=== PATIENT | female | born 1990 | race Caucasian/White ===

== ENCOUNTER 2017-09-30 17:36 | Emergency (ER) | payer OTHER, MEDICAID, SELFPAY ==
[2017-09-30 17:37] VITALS: BP 114/74; PULSE 88; RESP 16; TEMP 36.7; O2SAT 98; BMI 23.6
[2017-09-30] MEDS: 0.9% Normal Saline 1,000 ML 1000 ML IV ×2 (19:06→19:52)
[2017-09-30] MEDS: Ondansetron 4 MG/2 ML Vial IV (19:06)
--- NOTE | 2017-09-30 19:14 | ED.DCSUM_ITS ---
- ER Visit Summary Date of Service: 09/30/17 Chief Complaint: Nausea, vomiting History of Present Illness: The patient is a 27 F is a at approximately 7 weeks gestation who presents with nausea and vomiting. Patient has had hyperemesis with all of her pregnancies. She states that she began to vomit over the past 24 hours and is thrown up more than 10 times today. She denies any blood in the emesis. She has been taking Zofran with little improvement. She has had Zofran pump with her prior pregnancies. She denies any fevers or chills. She has had some abdominal cramping in the upper abdomen but denies any lower pain. She has had no vaginal bleeding or discharge. Physical Examination: Vital signs reviewed General: Well-nourished, well-developed Head: Normocephalic, atraumatic Eyes: Pupils equal and reactive, extraocular muscles intact Neck, supple, no lymphadenopathy Heart: Regular rate and rhythm Respiratory: No distress, clear bilaterally Abdomen: Soft, nontender, nondistended, no peritoneal signs Back: Nontender Extremities: Nontender, no edema, no cords Skin: Normal color no rash Neuro: Alert and oriented, no focal or lateralizing deficits Test Results: [] Emergency Department Course and Treatment: The patient has a history of hyperemesis. Her abdomen is soft and nontender. IV was established. The patient was given IV fluids and Zofran. She had persistent nausea but no further vomiting. She was then given Phenergan and Benadryl. Labs were unremarkable. Her nausea is controlled. Her abdomen is still soft. At this time, I do feel that she is safe for outpatient therapy. Patient will be discharged home. Treatment Plan: [] Disposition: Discharge Impression: Hyperemesis This note was generated with [employer] dictation software. It may contain incorrect words, spelling, and punctuation that were not noted in review of the chart prior to signing ED Disposition - Plan for ED Patient: Chief Complaint: Nausea/Vomiting Instructions: ED Preg Morning Sickness Prescriptions: proMETHazine tablet [Phenergan] 25 mg PO Q6H PRN PRN #10 tab PRN Reason: Nausea
[2017-09-30 19:15] LABS: Absolute Lymphocyte Count 1.51 X10^3/ul (0.83-4.51); Absolute Neutrophil Count 5.7 X10^3/uL (2.0-7.7); Basophil# 0.01 X10^3/uL; Basophil% 0.1 % (0-1); Eosinophils% 1.3 % (0-5); Hematocrit 38.1 % (37-47); Hemoglobin 13.1 g/dl (12.0-15.0); Lymphocyte # 1.51 X10^3/ul (4.0); Lymphocyte % 19.4 % (19-41); Mean Corp Hgb Conc 34.4 g/gl (32-36); Mean Corpuscular Hgb 29.6 pg (27.0-32.0); Mean Platelet Vol. 10.6 fl (6.2-12.0); Monocyte# 0.42 X10^3/uL; Monocyte% 5.4 % (0-10); Neutrophil # 5.74 X10^3/uL (2.7-7.7); Neutrophil % 73.8 % (47-70); POSITIVE COUNT NO; POSITIVE DIFFERENTIAL NO; POSITIVE MORPHOLOGY NO; Platelet Count 234 K/mm3 (150-450); RBC Distribution Width CV 12.5 % (11.6-14.6); RBC Distribution Width SD 39.8 fl (35.1-43.9); Red Blood Count 4.43 M/mm3 (4.2-5.4); White Blood Count 7.8 K/mm3 (4.4-11.0)
[2017-09-30 19:45] LABS: AST(SGOT) 12 U/L (15-37); Alanine Aminotransfer ALT/SGPT 20 U/L (13-56); Albumin, Serum 3.9 g/dL (3.2-5.0); Alkaline Phosphatase 57 U/L (45-117); Anion Gap 4 (5-15); BUN 11 mg/dL (7-18); BUN/Creat Ratio 16.5 RATIO (10-20); Calcium,Total 8.8 mg/dL (8.5-10.1); Chloride 103 mmol/L (98-107); Creatinine, Serum 0.67 mg/dL (0.55-1.02); EST Glomerular Filtration Rate 111 mL/min (>60); Est Glom Filt Rate - Afr Amer 134 mL/min (>60); Estimated Creatinine Clearance 120.48 ml/min; Globulin 3.8 g/dL (2.2-4.2); Glucose 76 mg/dL (74-106); Potassium 3.5 mmol/L (3.5-5.1); Protein, Total 7.7 g/dL (6.4-8.2); Sodium Level 136 mmol/L (136-145)
[2017-09-30] MEDS: DiphenhydrAMINE 50 MG/ML Syringe 25 MG IV (19:50)
[2017-09-30] MEDS: proMETHazine 25 MG/ML Syringe 12.5 MG IV (19:52)
[2017-09-30 19:58] VITALS: BP 108/49; PULSE 89; RESP 15; O2SAT 99
[2017-09-30 20:56] VITALS: BP 94/39; PULSE 74; RESP 15; O2SAT 99
== END 2017-09-30 20:57 | disposition home or self-care (01) ==
PROVIDERS: Emergency Provider Emergency Medicine; Family Provider Family Medicine
DX: O21.0 Mild hyperemesis gravidarum (principal); Z3A.01 Less than 8 weeks gestation of pregnancy
CPT/HCPCS: 80053; 84702; 85025; 99283; J7030; A4216; J2405

== ENCOUNTER 2017-10-03 19:59 | Emergency (ER) | payer OTHER, MEDICAID, SELFPAY ==
[2017-10-03 20:01] VITALS: BP 110/73; PULSE 104; RESP 16; TEMP 37.2; O2SAT 98; BMI 23.0
[2017-10-03] MEDS: 0.9% Normal Saline 1,000 ML 1000 ML IV (20:27)
[2017-10-03] MEDS: proMETHazine 25 MG/ML Syringe 12.5 MG IV (20:27)
[2017-10-03 20:32] LABS: Absolute Lymphocyte Count 1.05 X10^3/ul (0.83-4.51); Absolute Neutrophil Count 8.8 X10^3/uL (2.0-7.7); Basophil# 0.01 X10^3/uL; Basophil% 0.1 % (0-1); Eosinophil# 0.05 X10^3/uL; Eosinophils% 0.5 % (0-5); Hematocrit 40.8 % (37-47); Hemoglobin 14.3 g/dl (12.0-15.0); Lymphocyte # 1.05 X10^3/ul (4.0); Lymphocyte % 10.2 % (19-41); Mean Corpuscular Hgb 29.8 pg (27.0-32.0); Mean Platelet Vol. 11.1 fl (6.2-12.0); Monocyte# 0.41 X10^3/uL; Neutrophil # 8.75 X10^3/uL (2.7-7.7); Neutrophil % 85.1 % (47-70); POSITIVE COUNT NO; POSITIVE DIFFERENTIAL NO; POSITIVE MORPHOLOGY NO; Platelet Count 241 K/mm3 (150-450); RBC Distribution Width CV 12.3 % (11.6-14.6); RBC Distribution Width SD 37.9 fl (35.1-43.9); White Blood Count 10.3 K/mm3 (4.4-11.0)
[2017-10-03 20:42] LABS: Anion Gap 11 (5-15); BUN 14 mg/dL (7-18); BUN/Creat Ratio 21.9 RATIO (10-20); Chloride 105 mmol/L (98-107); Creatinine, Serum 0.64 mg/dL (0.55-1.02); EST Glomerular Filtration Rate 116 mL/min (>60); Est Glom Filt Rate - Afr Amer 141 mL/min (>60); Estimated Creatinine Clearance 126.13 ml/min; Glucose 97 mg/dL (74-106); Potassium 3.6 mmol/L (3.5-5.1); Sodium Level 138 mmol/L (136-145)
[2017-10-03] MEDS: Ondansetron 4 MG/2 ML Vial IV (21:09)
[2017-10-03] MEDS: 0.9% Normal Saline 1,000 ML 150 ML IV (21:09)
--- NOTE | 2017-10-03 21:50 | ED.DCSUM_ITS ---
- ER Visit Summary Date of Service: 10/03/17 Chief Complaint: Nausea and vomiting History of Present Illness: The patient is a 27 F who is currently 6 or 7 weeks . This is her third . She has had problems with hyperemesis with her prior pregnancies that required a Zofran pump. She was seen in the ER on September 30 with the same. She has Zofran and Phenergan both at home. Patient denies pelvic cramping or spotting. Physical Examination: Vital signs significant for heart rate of 104, otherwise normal. Patient is retching over the side of the bed when I enter the room. Heart is slightly tachycardic and regular. Lung sounds are clear. Abdomen is soft with mild lower abdominal tenderness. There is no guarding or rebound. Test Results: CBC and chemistry studies are unremarkable. Emergency Department Course and Treatment: Patient was given IV fluids and IV Phenergan. On repeat evaluation she was no longer retching but states that she is still vomiting. She is given a dose of Zofran. On repeat eval patient states that she still feels nauseated but has not had any further vomiting. I spoke with Dr. Palma, on-call for the patient's CLINICAL CASE MANAGER, in [place]. Patient is to call the office at 8:00 tomorrow morning to be seen as soon as possible for follow-up. Treatment Plan: [] Disposition: Discharge Impression: Hyperemesis This note was generated with [employer] dictation software. It may contain incorrect words, spelling, and punctuation that were not noted in review of the chart prior to signing ED Disposition - Plan for ED Patient: Chief Complaint: Nausea/Vomiting Referrals: Care Physician,No Primary [Primary Care Provider] -
--- NOTE | 2017-10-03 21:50 | ED.DEP ---
ED Disposition - Plan for ED Patient: Disposition: Home or Assisted Living Chief Complaint: Nausea/Vomiting Instructions: Severe Morning Sickness (Hyperemesis Gravidarum) Referrals: Jw Ron MD [STAFF PHYSICIAN] - As soon as possible
[2017-10-03 22:04] VITALS: BP 126/78; PULSE 67; RESP 16; O2SAT 100
[2017-10-03 22:05] VITALS: BP 126/78; PULSE 64; RESP 16; O2SAT 100
[2017-10-03] MEDS: proMETHazine 12.5 MG Suppos. RECTAL (22:06)
== END 2017-10-03 22:15 | disposition home or self-care (01) ==
PROVIDERS: Emergency Provider Emergency Medicine; Family Provider Family Medicine
DX: O21.0 Mild hyperemesis gravidarum (principal); Z3A.01 Less than 8 weeks gestation of pregnancy
CPT/HCPCS: 80048; 85025; 96361; 96374; 96375; 99283; J7030; A4216; J2405

== ENCOUNTER 2017-10-05 16:51 | Emergency (ER) | payer OTHER, MEDICAID, SELFPAY ==
[2017-10-05 16:53] VITALS: BP 108/68; PULSE 94; RESP 16; TEMP 36.7; O2SAT 98; BMI 22.8
[2017-10-05] MEDS: Metoclopramide 10 MG/2 ML Vial IV (18:33)
[2017-10-05] MEDS: DiphenhydrAMINE 50 MG/ML Syringe 25 MG IV (18:33)
[2017-10-05] MEDS: 0.9% Normal Saline 1,000 ML 1000 ML IV (18:34)
[2017-10-05] MEDS: 0.9% Normal Saline 1,000 ML 150 ML IV (18:34)
[2017-10-05 18:42] LABS: Absolute Lymphocyte Count 1.18 X10^3/ul (0.83-4.51); Absolute Neutrophil Count 8.6 X10^3/uL (2.0-7.7); Basophil# 0.01 X10^3/uL; Basophil% 0.1 % (0-1); Eosinophil# 0.04 X10^3/uL; Eosinophils% 0.4 % (0-5); Hematocrit 43.1 % (37-47); Hemoglobin 15.1 g/dl (12.0-15.0); Lymphocyte # 1.18 X10^3/ul (4.0); Lymphocyte % 11.4 % (19-41); Mean Corpuscular Hgb 29.9 pg (27.0-32.0); Mean Corpuscular Volume 85.3 fL (81-99); Mean Platelet Vol. 11.7 fl (6.2-12.0); Monocyte# 0.54 X10^3/uL; Monocyte% 5.2 % (0-10); Neutrophil # 8.56 X10^3/uL (2.7-7.7); Neutrophil % 82.8 % (47-70); Platelet Count 278 K/mm3 (150-450); RBC Distribution Width CV 12.6 % (11.6-14.6); RBC Distribution Width SD 38.9 fl (35.1-43.9); Red Blood Count 5.05 M/mm3 (4.2-5.4); White Blood Count 10.3 K/mm3 (4.4-11.0)
[2017-10-05 18:45] LABS: POSITIVE COUNT NO; POSITIVE DIFFERENTIAL NO; POSITIVE MORPHOLOGY NO
[2017-10-05 18:56] LABS: AST(SGOT) 9 U/L (15-37); Alanine Aminotransfer ALT/SGPT 18 U/L (13-56); Albumin, Serum 4.3 g/dL (3.2-5.0); Alkaline Phosphatase 69 U/L (45-117); Anion Gap 9 (5-15); BUN 14 mg/dL (7-18); BUN/Creat Ratio 20.8 RATIO (10-20); Bilirubin, Direct 0.19 mg/dL (0.00-0.30); Calcium,Total 9.4 mg/dL (8.5-10.1); Chloride 103 mmol/L (98-107); Creatinine, Serum 0.67 mg/dL (0.55-1.02); EST Glomerular Filtration Rate 110 mL/min (>60); Est Glom Filt Rate - Afr Amer 133 mL/min (>60); Estimated Creatinine Clearance 120.48 ml/min; Globulin 4.6 g/dL (2.2-4.2); Glucose 91 mg/dL (74-106); Lipase 110 U/L (73-393); Potassium 3.4 mmol/L (3.5-5.1); Protein, Total 8.9 g/dL (6.4-8.2); Sodium Level 137 mmol/L (136-145)
--- NOTE | 2017-10-05 20:38 | ED.VISSUMM ---
- ER Visit Summary Date of Service: 10/05/17 Chief Complaint: Nausea and vomiting History of Present Illness: The patient is a 27 F currently 7 weeks . She has had problems with hyperemesis with previous pregnancies as well as this . She was supposed to get a Zofran pump placed tomorrow. Her OB is Dr. Ron in [place]. Patient has been seen here twice in the past week for the same. Patient states she is continued to have vomiting and has not been able to eat in the last 2 days. Physical Examination: Vital signs are unremarkable. Patient is lying in bed. She is in no acute distress, alert and talkative. Heart is regular rate and rhythm. Lung sounds are clear. Abdomen is soft with mild diffuse tenderness. No guarding or rebound. Hypoactive but present bowel sounds are noted. Test Results: CBC was normal white count. Hemoglobin is 15.1. Chemistry studies reveal slightly low potassium 3.4. LFTs and lipase are normal. Emergency Department Course and Treatment: Patient is given IV fluids along with Reglan and Benadryl. On repeat evaluation she states her nausea is improved. She was able to tolerate some crackers and Sprite here. She will be discharged with Reglan and is to follow-up to get her Zofran pump tomorrow. Treatment Plan: [] Disposition: Discharge Impression: Hyperemesis This note was generated with [employer] dictation software. It may contain incorrect words, spelling, and punctuation that were not noted in review of the chart prior to signing ED Disposition - Plan for ED Patient: Chief Complaint: Nausea/Vomiting Referrals: Care Physician,No Primary [Primary Care Provider] -
--- NOTE | 2017-10-05 20:40 | ED.DEP ---
ED Disposition - Plan for ED Patient: Disposition: Home or Assisted Living Chief Complaint: Nausea/Vomiting Instructions: Severe Morning Sickness (Hyperemesis Gravidarum) Prescriptions: Metoclopramide [Reglan] 10 mg PO 4X/DAY PRN #20 tablet PRN Reason: Headache Referrals: Jw Ron MD [STAFF PHYSICIAN] - 1 Day
[2017-10-05 20:52] VITALS: BP 123/74; PULSE 61; RESP 15; O2SAT 98
== END 2017-10-05 20:53 | disposition home or self-care (01) ==
PROVIDERS: Emergency Provider Emergency Medicine; Family Provider Family Medicine
DX: O21.0 Mild hyperemesis gravidarum (principal); Z3A.01 Less than 8 weeks gestation of pregnancy
CPT/HCPCS: 80048; 80076; 83690; 85025; 99283; J7030

== ENCOUNTER 2020-12-13 00:34 | Emergency (ER) | payer MEDICAID, SELFPAY ==
[2020-12-13 00:34] VITALS: BP 133/96; PULSE 101; RESP 23; TEMP 36.6; O2SAT 98; BMI 25.4
--- NOTE | 2020-12-13 00:50 | EKG12_ITS ---
Test Reason : CP Blood Pressure : / mmHG Vent. Rate : 097 BPM Atrial Rate : 097 BPM P-R Int : 144 ms QRS Dur : 072 ms QT Int : 352 ms P-R-T Axes : 056 053 058 degrees QTc Int : 447 ms Normal sinus rhythm Normal ECG Confirmed by CITLALY CHANEL, SANDY ([id number]), restaurant expeditor MARISEL PITTS ([id number]) on 12/17/2020 7:47:54 AM Referred By: Confirmed By:SANDY BOUCHER MD
[2020-12-13] MEDS: oxyCODONE 5 MG Tablet 10 MG PO (00:56)
[2020-12-13] MEDS: Ketorolac 30 MG/ML Syringe IV (00:57)
--- NOTE | 2020-12-13 01:04 | RAD_ITS ---
STUDY: X-RAY CHEST REASON FOR EXAM: Female, 30 years old. chest pain TECHNIQUE: Single AP portable view of the chest. COMPARISON: None. FINDINGS: The lungs are clear and expanded. There is no demonstrated pleural abnormality. Normal size heart. Normal mediastinum and jose. Normal visualized pulmonary arteries. Normal visualized aortic arch and descending thoracic aorta. Normal visualized thoracic spine. Normal visualized ribs, clavicles, and shoulders. There is no demonstrated abnormality of the visualized soft tissue structures of the upper abdomen. RAD/Chest 1 View (Portable) IMPRESSION: Normal x-ray examination of the chest. Electronically Signed: Maciel Clemens DO at 1:50 EDT Tel , Service support ,
--- NOTE | 2020-12-13 01:37 | ED.VIS.CHEST ---
HPI History of Present Illness Chief Complaint: Chest Pain Informant: patient Narrative Narrative: 30-year-old female presents the emergency room with a sharp stabbing pain just to the right of her manubrium over the lower chest. She states that it hurts to take a deep breath hurts to touch and hurts to move. The patient notes that today she worked in a different area at her job which involves a lot of heavy lifting. She was asleep when the pain started and woke her from sleep. She denies any DVT PE risk factors. PFSH PFSH Medical History no medical history no medical history Home Medications hydrocodone-acetaminophen 1 tab PO Q6H PRN PRN 3 Days #12 tablet 12/13/20 [Rx Last Taken Unknown] ibuprofen 600 mg PO Q6H PRN PRN #20 tablet 12/13/20 [Rx Last Taken Unknown] Allergy/AdvReac Type Severity Reaction Status Date / Time Penicillins Allergy Unknown Verified 12/13/20 00:37 promethazine [From Phenergan] AdvReac Vomiting Verified 12/13/20 00:37 Social History (Updated 12/13/20 @ 01:[address] Chas Rogers, DO) Smoking Status: Never smoker substance use type: does not use ROS ROS ED Constitutional Constitutional ED: Denies chills or weight loss Eyes Eyes: Denies change in vision or diplopia ENT ENT ED: Denies ear pain, rhinorrhea or sore throat Cardiovascular Cardiovascular: Reports chest pain; Denies orthopnea, palpitations or racing heartbeat Respiratory/Chest Respiratory/Chest: Denies cough, dyspnea or orthopnea Gastrointestinal Gastrointestinal: Denies abdominal pain, diarrhea, nausea or vomiting Genitourinary Genitourinary ED: Denies dysuria, hematuria or urinary frequency Musculoskeletal Musculoskeletal: Denies arthralgias or myalgias Integumentary Denies abscess or rash Neurologic Neurologic: Denies headache(s) or weakness Psychiatric Psychiatric: Denies anxiety, depression, suicidal ideation or suicidal thoughts Endocrine Endocrinology: Denies polydipsia, polyphagia or polyuria Allergic/Immunologic Allergic/Immunologic ED: Denies mouth swelling, tongue swelling or urticaria EXAM Physical Exam Const Vital Signs: 12/13/20 00:34 Temperature 97.9 F Temperature Source Temporal Pulse Rate 101 H Respiratory Rate 23 H Blood Pressure 133/96 H Blood Pressure Mean 108 Pulse Ox 98 Oxygen Delivery Method Room Air Positive well nourished and well developed General Appearance ED: well developed HEENT Reports normocephalic, head/scalp atraumatic and moist mucous membranes Eyes PERRL and EOMs intact bilaterally Neck no lymphadenopathy, supple and no JVD Chest Wall Chest Narrative: Tender to palpation of the anterior lower right ribs. There is also tenderness posteriorly along the same associated ribs. Resp clear to auscultation bilaterally Resp Narrative: Patient is taking fast shallow breaths Cardio regular rate and no murmurs Rate: tachycardic GI normal to inspection, nondistended, normoactive bowel sounds and non-tender Palpation: soft Back/Spine no CVA tenderness and normal ROM Extremity normal to inspection General Extremety ED: Negative for edema General Extremity: Negative for edema Neuro oriented x3 and CN's II-XII intact bilaterally Sensorium / Orientation: alert Motor Exam: strength 5/5 throughout Psych mental status grossly normal Mood & Affect: Negative for depressed or tearful Skin no rashes or lesions noted and no wounds MDM MDM MDM Narrative Medical decision making narrative: My interpretation of the chest x-ray is no acute process. Patient received Toradol and oxycodone for pain. Patient's pain is reproducible. She did strenuous lifting today at her work. I think this is most likely somatic dysfunction of the right rib cage. Would recommend continued anti-inflammatories for pain. EKG Initial EKG: Attestation: I personally reviewed and interpreted this EKG as follows: Comments: Sinus rhythm with a ventricular rate of 97 bpm no concerning features of ACS or ectopy noted Discharge Plan Triage Chief Complaint: Chest Pain ED Provider: Chas Rogers Dx/Rx/DC Orders Clinical Impression: Segmental and somatic dysfunction of rib cage Instructions: ED Strain Chest Wall Prescriptions: New ibuprofen 600 MG tablet 600 mg PO Q6H PRN PRN (Reason: pain) Qty: 20 RF: 0 hydrocodone-acetaminophen [hydrocodone-acetaminophen] 1 TABLET tablet 1 tab PO Q6H PRN PRN (Reason: Pain) 3 Days Qty: 12 RF: 0 Primary Care Provider: Care Physician,No Primary Referrals: Care Physician,No Primary [Primary Care Provider] - Disposition Disposition: Home, Self Care
[2020-12-13 02:24] VITALS: PULSE 63; RESP 14; O2SAT 97
== END 2020-12-13 02:33 | disposition home or self-care (01) ==
PROVIDERS: Emergency Provider Emergency Medicine
DX: M99.08 Segmental and somatic dysfunction of rib cage (principal)
CPT/HCPCS: 71045; 93005; 96374; 99283; A4216

== ENCOUNTER 2022-09-22 05:49 | Emergency (ER) | payer MEDICAID, SELFPAY ==
[2022-09-22 05:50] VITALS: BP 111/51; PULSE 91; RESP 18; TEMP 36.8; O2SAT 96; BMI 23.4
--- NOTE | 2022-09-22 06:04 | EX.ED.VIS.UR ---
HPI HPI - URI History of Present Illness Chief Complaint: Cough Detail of Chief Complaint: Intermittent cough for a month. Informant: patient Onset/Context/Timing Onset: Weeks Context: Gradual Onset Timing: Intermittent Current Severity: Mild Maximum Severity: Mild Associated Symptoms Associated Symptoms: Positive for Nasal Congestion and Productive Cough Narrative Narrative: Healthy 32-year-old female sent intermittent cough for a month. Her children are in daycare. But no one else at home is really been sick. At times the phlegm is clear to yellow or green. No hemoptysis. No significant shortness of breath. She denies any lung history. She is a non-smoker. Prior similar symptoms: Yes Recent Illness/Hospitalization: No ROS ROS ED ROS Narrative Cough. Review of Systems ROS Unobtainable: Denies due to encephalopathy Constitutional Constitutional ED: Reports fever(s) and subjective; Denies chills Eyes Eyes: Denies blurry vision ENT ENT ED: Reports rhinorrhea; Denies ear pain or sore throat Cardiovascular Cardiovascular: Denies chest pain Respiratory/Chest Respiratory/Chest: Reports cough; Denies dyspnea or dyspnea on exertion Gastrointestinal Gastrointestinal: Denies abdominal pain, diarrhea, nausea or vomiting Genitourinary Genitourinary ED: Denies dysuria Musculoskeletal Musculoskeletal: Denies arthralgias Integumentary Denies abscess Neurologic Neurologic: Denies headache(s) Psychiatric Psychiatric: Denies anxiety Endocrine Endocrinology: Denies cold intolerance Hematologic/Lymphatic Hematologic/Lymphatic: Denies easy bleeding Allergic/Immunologic Allergic/Immunologic ED: Denies mouth swelling, tongue swelling or urticaria PFSH PFSH Medical History Depression Home Medications hydrocodone-acetaminophen 5-325mg 5mg-325mg 1 tab PO Q6H PRN PRN Pain 3 days #12 TABLETS 12/13/20 [Rx Last Taken Unknown] ibuprofen 600 mg tablet 600 mg PO Q6H PRN PRN pain #20 TABLETS 12/13/20 [Rx Last Taken Unknown] Allergy/AdvReac Type Severity Reaction Status Date / Time Penicillins Allergy Unknown Verified 12/13/20 00:37 promethazine [From Phenergan] AdvReac Vomiting Verified 12/13/20 00:37 Social History Smoking Status: Never smoker substance use type: does not use EXAM Physical Exam Narrative Exam Narrative: Very well-appearing 32-year-old female. Vital signs are stable afebrile. Pulse ox 96% on room air. She is in no distress. Clinically looks well. HEENT exam unremarkable. Posterior pharynx normal. No trouble swallowing or breathing. No stridor or drooling. Neck nontender no lymphadenopathy. Lungs clear to auscultation bilaterally. Dry cough. No rales, rhonchi or wheezing. Equal symmetrical. Heart regular rhythm rate about 90 no murmur. Chest wall nontender. Back nontender. Abdomen soft nontender. Moving all 4 extremities. Calves are nontender without edema or cords. Neurologically she is awake and alert with no focal motor deficits. Const Vital Signs: 09/22/22 05:50 09/22/22 05:55 Temperature 98.3 F Temperature Source Oral Pulse Rate 91 Respiratory Rate 18 Respiratory Effort Normal Respiratory Depth Normal Respiratory Pattern Normal Blood Pressure 111/51 L Blood Pressure Mean 71 Pulse Ox 96 Oxygen Delivery Method Room Air Room Air Positive well nourished and well developed; Negative for obese, cachectic or contractures General Appearance ED: well developed and NAD; Negative for cachectic, contractures, cyanotic, diaphoretic or pallor Nutritional Appearance: Negative for cachectic or obese HEENT Reports moist mucous membranes; Denies dry mucous membranes normocephalic and atraumatic; Negative for scalp tenderness Face and Sinus: Negative for sinus tenderness Mouth ED: No dry mucous membranes Mouth: No dry mucous membranes Throat: posterior oropharynx normal Eyes PERRL and EOMs intact bilaterally General Eye ED: Negative for pale conjunctiva or scleral icterus Neck no lymphadenopathy, supple, no meningeal signs and no JVD General: Negative for anterior neck swelling or lymphadenopathy Resp normal respiratory effort and clear to auscultation bilaterally Effort and Inspection: Negative for retractions Auscultation: Negative for rales, rhonchi or wheezes Cardio S1 normal heart sound, S2 normal heart sound and no murmurs Rate: regular rate Rhythm: regular rhythm GI non-tender, non-distended and no masses Inspection: Negative for abdominal distention Auscultation: normoactive bowel sounds Palpation: soft; Negative for tender or guarding Back/Spine no CVA tenderness and normal ROM Cervical Spine: Negative for cervical spine tenderness Thoracic Spine / Upper Back: Negative for thoracic spinal tenderness Lumbar Spine / Lower Back: Negative for lumbar spinal tenderness Extremity normal to inspection and full ROM General Extremety ED: Negative for cyanosis or tenderness General Extremity: Negative for cyanosis Neuro oriented x3 and CN's II-XII intact bilaterally Sensorium / Orientation: alert, oriented to person, oriented to place and oriented to time; Negative for orientation impaired, lethargic or stuporous Motor Exam: strength 5/5 throughout Psych mental status grossly normal Appearance: Negative for other Attitude: No agitated Mood & Affect: Negative for depressed, anxious or tearful Skin General Skin Exam: Negative for jaundice or pallor Lesions: no lesions Rashes: no rashes Trauma: Negative for abrasion MDM MDM MDM Narrative Medical decision making narrative: Patient with intermittent cough for months. Exam is benign. Vital signs are stable. Clinically she does not have a pneumonia. Her lungs and cardiac exam are unremarkable. She does not need any testing or imaging. She is comfortable with the plan. She does not need any antibiotics. She will be discharged home with outpatient follow-up as needed. She will be given the name of a local primary care physician or practice to follow-up with. History & Record Review Discussion w/independent historian: Patient Discharge Plan Triage Chief Complaint: Cough Other Complaint: Shortness of Breath ED Provider: Lázaro Ponce Dx/Rx/DC Orders Clinical Impression: Cough, Viral syndrome Instructions: ED URI, Viral, No Abx (Adult) Prescriptions: No Action ibuprofen 600 MG tablet 600 mg PO Q6H PRN PRN (Reason: pain) Qty: 20 0RF hydrocodone-acetaminophen [hydrocodone-acetaminophen] 1 TABLET tablet 1 tab PO Q6H PRN PRN (Reason: Pain) 3 Days Qty: 12 0RF Primary Care Provider: Care Physician,No Primary Referrals: Kraig العراقي MD [Med Staff - Circular Sawyer Helper] - As Needed Care Physician,No Primary [Primary Care Provider] - Activity Restrictions/Additional Instructions: Follow-up with your doctor as needed. Disposition Disposition: Home, Self Care
== END 2022-09-22 06:22 | disposition home or self-care (01) ==
LOC: ED 06:18
PROVIDERS: Emergency Provider Emergency Medicine; Visit Provider Emergency Medicine
DX: R05.9 Cough, unspecified (principal); B34.9 Viral infection, unspecified; R09.81 Nasal congestion
CPT/HCPCS: 99282